=== PATIENT | male | born 1960 | race Caucasian/White ===

== ENCOUNTER 2021-06-21 08:33 | Outpatient (CLI) | payer MEDICARE, MEDICAID, SELFPAY ==
--- NOTE | 2021-06-21 12:00 | NEURO_ITS ---
Impression: # History of back surgery and right lower extremity residual weakness. # Absent right peroneal responses with absent F-waves and neurogenic changes on needle/EMG exam. # Findings suggestive of residual damage from original trauma/surgery. # Clinical correlation recommended. Anti Sensory Summary Table Stim Site NR Peak (ms) P-T Amp (?V) Site1 Site2 Delta-P (ms) Dist (cm) Jason (m/s) Left Sup Fibular Anti Sensory (Ant Lat Mall) 14 cm 3.1 12.3 14 cm Ant Lat Mall 3.1 16.0 52 Right Sup Fibular Anti Sensory (Ant Lat Mall) 14 cm 3.1 13.5 14 cm Ant Lat Mall 3.1 16.0 52 Left Sural Anti Sensory (Lat Mall) Calf 3.7 41.6 Calf Lat Mall 3.7 16.0 43 Right Sural Anti Sensory (Lat Mall) NO RESPONSE Calf NR Calf Lat Mall 16.0 Motor Summary Table Stim Site NR Onset (ms) O-P Amp (mV) Site1 Site2 Delta-0 (ms) Dist (cm) Jason (m/s) Left Peroneal Motor ([facility]) Ankle 4.2 1.6 Popit Ankle 9.9 41.0 41 Popit 14.1 1.5 Right Peroneal Motor ([facility]) NO RESPONSE Ankle NR Popit NR Left Tibial Motor ([place] [place]) Ankle 5.2 3.3 Knee Ankle 10.3 46.0 45 Knee 15.5 2.1 Right Tibial Motor ([place] [facility]) Ankle 4.8 3.2 Knee Ankle 12.2 48.0 39 Knee 17.0 3.0 F Wave Studies NR F-Lat (ms) L-R F-Lat (ms) Left Peroneal (Mrkrs) (EDB) 57.34 Right Peroneal (Mrkrs) (EDB) NO RESPONSE NR Left Tibial (Mrkrs) (Abd Hallucis) 56.56 6.82 Right Tibial (Mrkrs) (Abd Hallucis) 63.37 6.82 EMG Side Muscle Nerve Root Ins Act Fibs Amp Dur Recrt Comment Right AntTibialis Dp Br Fibular L4-5 Nml Nml Nml Nml Nml Right Gastroc Tibial S1-2 Nml Nml Incr >12ms Reduced Right Fibularis Long Sup Br Fibular L5-S1 Nml Nml Nml Nml Nml Right Flex Dig Long Tibial L5-S2 Nml Nml Nml Nml Nml Right Ext Dig Brev Dp Br Fibular L5, S1 Nml Nml Incr >12ms Reduced Left AntTibialis Dp Br Fibular L4-5 Nml Nml Nml Nml Nml Left Gastroc Tibial S1-2 Nml Nml Nml Nml Nml Left Fibularis Long Sup Br Fibular L5-S1 Nml Nml Nml Nml Nml Left Flex Dig Long Tibial L5-S2 Nml Nml Nml Nml Nml Left Ext Dig Brev Dp Br Fibular L5, S1 Nml Nml Nml Nml Nml MTDD
== END 2021-06-21 08:34 | disposition home or self-care (01) ==
PROVIDERS: PCP Family Medicine; Visit Provider Family Medicine
DX: G62.9 Polyneuropathy, unspecified (principal)
CPT/HCPCS: 95886; 95910; 95911

== ENCOUNTER → 2021-06-28 12:57 | Outpatient (CLI) | payer MEDICARE, MEDICAID, SELFPAY ==
--- NOTE | ~2021-06-28 | CT_ITS ---
EXAMINATION: CT cervical spine wo con DATE: 06/28/2021 13:26 INDICATION: Cervical radiculopathy. TECHNIQUE: Computed tomography (CT) of the cervical spine was performed without intravenous contrast. Automated exposure control and iterative reconstruction technique were employed. The dose-length pro duct was 345.18 mGy-cm. COMPARISON: None FINDINGS: There is 8 degrees levocurvature of cervical spine. Vertebral body heights are normal. Ther e is mildly decreased disc height at C3-C4. The following disc levels are specifically discussed: C2-C3: There is mild bilateral uncovertebral joint osteoarthritis. There is mild bilateral facet join t osteoarthritis. There is no neural foraminal stenosis. There is no central canal stenosis. C3-C4: There is mild bilateral uncovertebral joint osteoarthritis. There is mild right facet joint os teoarthritis. There is no neural foraminal stenosis. There is mild central canal stenosis. C4-C5: There is mild bilateral uncovertebral joint osteoarthritis. There is mild right and moderate l eft facet joint osteoarthritis. There is no neural foraminal stenosis. There is mild central canal st enosis. C5-C6: There is no uncovertebral joint osteoarthritis. There is no facet joint osteoarthritis. There is no neural foraminal stenosis. There is no central canal stenosis. C6-C7: There is no uncovertebral joint osteoarthritis. There is mild bilateral facet joint osteoarthr itis. There is no neural foraminal stenosis. There is no central canal stenosis. C7-T1: There is no uncovertebral joint osteoarthritis. There is mild right and moderate left facet esther int osteoarthritis. There is mild left neural foraminal stenosis. There is no central canal stenosis. IMPRESSION: 1. Mild cervical spondylosis. Reviewed, dictated and finalized at location A.
== END ==
PROVIDERS: PCP Family Medicine; Visit Provider Nurse Practitioner Adult Health
DX: M54.12 Radiculopathy, cervical region (principal); M47.812 Spondylosis without myelopathy or radiculopathy, cervical region
CPT/HCPCS: 72125

== ENCOUNTER 2021-08-10 11:52 | Outpatient (CLI) | payer OTHER, SELFPAY ==
--- NOTE | ~2021-08-10 | XR_ITS ---
EXAMINATION: XR foot LT min 3V DATE: 08/10/2021 13:34 INDICATION: Left foot pain TECHNIQUE: Dorsoplantar, lateral, and 2 oblique views of the left foot were obtained. COMPARISON: 05/21/2017 FINDINGS: There is heterotopic ossification projecting in the medial foot near the calcaneus and dayan cular of unclear origin. There is mild osteoarthritis of several interphalangeal joints. There is mil d medial soft tissue swelling of the foot. IMPRESSION: 1. Possible avulsion injury of the medial foot projecting near the calcaneus and navicular. Recommend clinical correlation for medial foot pain and consider further evaluation with CT if present. Reviewed, dictated and finalized at location A. IMPRESSION: 1. Possible avulsion injury of the medial foot projecting near the calcaneus an d navicular. Recommend clinical correlation for medial foot pain and consider f urther evaluation with CT if present.
--- NOTE | ~2021-08-10 | CT_ITS ---
EXAMINATION: CT lumbar spine wo con DATE: 08/10/2021 12:36 INDICATION: Lumbar radiculopathy. TECHNIQUE: Computed tomography (CT) of the lumbar spine was performed without intravenous contrast. A utomated exposure control and iterative reconstruction technique were employed. The dose-length produ ct was 1339.05 mGy-cm. COMPARISON: None FINDINGS: There are two 4 mm stones in left kidney. There is 7 degrees levocurvature of lumbar spine. Vertebral body heights are normal. There is mildly decreased disc height from L3-L4 through L5-S1 wi th disc calcifications. There is scalloping of bone around the central spinal canal from L3 to L5 on the right. Partially visualized are epidural electrodes in thoracic spine. The following disc levels are specifically discussed: L1-L2: There is a right central protrusion. There is mild bilateral facet joint osteoarthritis. There is mild bilateral neural foraminal stenosis. There is mild central canal stenosis. L2-L3: There is a central extrusion. There is moderate bilateral facet joint osteoarthritis. There is mild bilateral neural foraminal stenosis. There is mild central canal stenosis. L3-L4: The disc does not extend beyond the endplate margin. There is ankylosis of the facet joints wi th mild left hypertrophy. There is mild bilateral neural foraminal stenosis. There is no central [place] l stenosis. L4-L5: The disc does not extend beyond the endplate margin. There is ankylosis of the facet joints wi th mild hypertrophy. There is mild bilateral neural foraminal stenosis. There is no central canal yoav nosis. There is mild stenosis of right lateral recess. L5-S1: The disc is bulging. There is ankylosis of the facet joints with moderate right and mild left hypertrophy. There is mild bilateral neural foraminal stenosis. There is no central canal stenosis. IMPRESSION: 1. Mild lumbar spondylosis. 2. Scalloping of bone around the central spinal canal from L3 to L5 on the right, which may be dural ectasia. Comparison with prior imaging or lumbar spine MRI without and with contrast is recommended t o exclude nonaggressive mass lesion such as a peripheral nerve sheath tumor. Reviewed, dictated and finalized at location A. IMPRESSION: 1. Mild lumbar spondylosis. 2. Scalloping of bone around the central spinal canal from L3 to L5 on the righ t, which may be dural ectasia. Comparison with prior imaging or lumbar spine MR I without and with contrast is recommended to exclude nonaggressive mass lesion such as a peripheral nerve sheath tumor.
== END 2021-08-10 11:53 | disposition home or self-care (01) ==
PROVIDERS: PCP Family Medicine; Visit Provider Nurse Practitioner Adult Health
DX: M54.16 Radiculopathy, lumbar region (principal); M79.672 Pain in left foot; M47.816 Spondylosis without myelopathy or radiculopathy, lumbar region; R93.7 Abnormal findings on diagnostic imaging of other parts of musculoskeletal system
CPT/HCPCS: 72131; 73630

== ENCOUNTER 2023-12-09 13:40 | Outpatient (CLI) | payer OTHER, SELFPAY ==
--- NOTE | ~2023-12-09 | XR_ITS ---
EXAM: XR knee RT min 4V DATE: 12/09/2023 14:41 HISTORY: PAIN OF RIGHT KNEE JOINT, NO KNOWN INJ, HX NEUROPATHY . COMPARISON: 08/05/2018. FINDINGS: Decreased mineralization. No fracture or dislocation. No lytic or blastic lesion. Mild tri compartmental osteophytosis. Quadriceps enthesopathy. Chondrocalcinosis. Meniscal ossicle versus fabe lla posteriorly. No erosion or periosteal change. Soft tissues within normal limits. IMPRESSION: Mild tricompartmental right knee arthritis with chondrocalcinosis. Reviewed, dictated and finalized at location K. [employer]
== END 2023-12-09 13:41 | disposition home or self-care (01) ==
PROVIDERS: PCP Family Medicine; Visit Provider Family Medicine
DX: M17.11 Unilateral primary osteoarthritis, right knee (principal)
CPT/HCPCS: 73564